=== PATIENT | female | born 1940 | race Caucasian/White ===

== ENCOUNTER 2017-01-01 06:35 | Day surgery (SDC) | payer MEDICARE, BC ==
[~2017-01-01 06:35] MED LIST: ALEVE220 MG PO; AMLODIPINE BESYL5 MG PO; ASPIRIN PO; BYSTOLIC20 M1 PO; CALTRATE 600 W1 EACH PO; CALTRATE 600+D1 EAC1 PO; CIPRO500 M2 PO; DAILY MULTIPLE1 EAC2 PO; GABAPENTIN300 M1 PO; LEVAQUIN750 MG PO; LOW DOSE ASPIRI81 M3 PO; MEDROL4 M1 PO; MULTIVITAMIN1 TAB PO; NEURONTIN100 M1 PO; NORVASC5 M2 PO; VITAMIN B-1100 M1 PO; [UNRECOGNIZED DRUG - OTHER] PO
[2017-01-01 07:35] LABS: BASO % 0.9 % (0-2); BASO ABSOLUTE COUNT 0.1 tho/cmm (0.0-0.2); EOS % 1.5 % (0-7); EOSINOPHIL ABSOLUTE COUNT 0.1 tho/cmm (0.0-0.7); HCT-HEMATOCRIT 40.3 % (34.0-49.0); HGB-HEMOGLOBIN 13.9 gm/dl (12.0-15.5); IMMATURE GRANULOCYTES ABSOLUTE 0.01 tho/cmm (0-0.03); IMMATURE GRANULOCYTES PERCENT 0.2 % (0-0.3); LYMPH % 23.4 % (20-45); LYMPH ABSOLUTE COUNT 1.2 tho/cmm (0.8-4.5); MCH (MEAN CORPUSCULAR HGB) 31.8 pg (28.0-32.0); MCHC MEAN CORPUSCULAR HGB CONC 34.5 % (32.0-36.0); MCV (MEAN CELL VOLUME) 92.2 fl (82.0-96.0); MEAN PLATELET VOLUME 10.6 cmc (9.4-12.4); MONO % 9.1 % (0-12); MONOCYTE ABSOLUTE COUNT 0.5 tho/cmm (0.0-1.2); NEUTROPHIL ABSOLUTE COUNT 3.4 tho/cmm (1.6-8.0); NEUTROPHIL-AUTOMATED 3.4 tho/cmm (1.6-8.0); NEUTROPHILS % 64.9 % (40-80); PLATELET COUNT 236 tho/cmm (150-450); RED BLOOD COUNT 4.37 mil/cmm (4.00-5.20); RED CELL DISTRIBUTION WIDTH 12.6 % (12.4-16.4); WHITE BLOOD COUNT 5.3 tho/cmm (4.0-10.0)
[2017-01-01 07:46] LABS: ANION GAP 9 mmol/L (0-20); BLOOD UREA NITROGEN 20 mg/dl (6-24); CARBON DIOXIDE-VENOUS 29 mmol/L (22-32); CHLORIDE 100 mmol/l (96-110); GLUCOSE 83 mg/dL (70-110); POTASSIUM 4.1 mmol/L (3.7-5.1); SODIUM 134 mmol/L (135-145); eGFR VALUE FOR BLACK 72 mL/Min
[2017-01-03] MEDS ORDERED: COLACE100 M1 PO (11:56)
[2017-01-03] MEDS ORDERED: NORCO 5-325 TA1 EACH PO (11:57)
[2017-01-03] MEDS ORDERED: LEVAQUIN500 M1 PO (11:58)
[2017-03-28] MEDS ORDERED: DIFLUCAN100 M1 PO (09:50)
[2017-04-03] MEDS ORDERED: NORCO 5-325 TA1 EACH PO (12:09)
[2017-04-03] MEDS ORDERED: COLACE100 M1 PO (12:09)
== END 2017-01-03 16:00 | disposition home health service (06) ==
LOC: SRG 06:35 → SHSB 06:39 → ORW 09:35 → PACU 10:49 → BURN 14:32
PROVIDERS: Anesthesiology
PROC: 0HXKXZZ Transfer Right Lower Leg Skin, External Approach (ICD-10-PCS; principal; 2017-01-01)
PROC: 0HRLXK3 Replacement of Left Lower Leg Skin with Nonautologous Tissue Substitute, Full Thickness, External Approach (ICD-10-PCS; 2017-01-01)
DX: L97.929 Non-pressure chronic ulcer of unspecified part of left lower leg with unspecified severity (principal); L57.0 Actinic keratosis; I10 Essential (primary) hypertension; M19.90 Unspecified osteoarthritis, unspecified site; M81.0 Age-related osteoporosis without current pathological fracture; F32.9 Major depressive disorder, single episode, unspecified; G47.00 Insomnia, unspecified; Z79.899 Other long term (current) drug therapy; Z88.2 Allergy status to sulfonamides; Z87.891 Personal history of nicotine dependence; Z90.89 Acquired absence of other organs; Z90.710 Acquired absence of both cervix and uterus; Z98.890 Other specified postprocedural states
CPT/HCPCS: G8978-GP-CI; G8979-GP-CI; G8980-GP-CI; J0171; J1170; J2270; J2405; J3010; J3370; L4396; Q4104